=== PATIENT | female | born 2000 | race Caucasian/White ===

== ENCOUNTER 2024-07-20 23:34 | Inpatient (IN) | payer BC, MEDICAID ==
[2024-07-21] MEDS ORDERED: Bupivacaine 0.25% 10 ML SDV ONE
[2024-07-21] MEDS ORDERED: Lidocaine 1% 50 ML MDV INJECT PRN (00:32)
[2024-07-21 00:58] LABS: BASOPHILS PERCENT AUTO 0.4 % (0.0-1.0); EOSINOPHILS ABSOLUTE AUTO 0.1 K/mm3 (0.0-0.4); EOSINOPHILS PERCENT AUTO 0.7 % (0.0-6.0); HEMATOCRIT 37.5 % (37.0-47.0); IMMATURE GRAN ABSOLUTE AUTO 0.05 K/mm3 (0.00-0.05); IMMATURE GRAN PERCENT AUTO 0.5 % (0.0-0.4); LYMPHOCYTES ABSOLUTE AUTO 1.8 K/mm3 (1.0-4.8); LYMPHOCYTES PERCENT AUTO 17.2 % (24.0-44.0); MEAN CORPUSCULAR HEMOGLOBIN 32.7 pg (28.0-32.0); MEAN CORPUSCULAR HGB CONC 34.7 g/dl (32.0-36.0); MEAN CORPUSCULAR VOLUME 94.5 fl (83.0-99.0); MEAN PLATELET VOLUME 10.9 fl (9.4-12.3); MONOCYTES ABSOLUTE AUTO 0.8 K/mm3 (0.0-0.8); MONOCYTES PERCENT AUTO 7.9 % (0.0-8.0); NEUTROPHILS ABSOLUTE AUTO 7.5 K/mm3 (1.8-7.7); NEUTROPHILS PERCENT AUTO 73.3 % (41.0-71.0); PLATELET COUNT,PLT 204 K/mm3 (150-400); RED BLOOD CELL COUNT 3.97 M/mm3 (4.10-5.30); WHITE BLOOD CELL COUNT,WBC 10.23 K/mm3 (3.9-11.3)
[2024-07-21] MEDS: Acetaminophen 325 MG Tab PO ONE (01:31)
[2024-07-21] MEDS: Nalbuphine 10 MG/1 ML Vial IVPUSH ONE ×2 (02:20→05:39)
[2024-07-21] MEDS: Lactated Ringers 1,000 ML IV SCH (05:41)
[2024-07-21] MEDS ORDERED: ePHEDrine 50 MG/ML SDV IVPUSH PRN (08:15)
[2024-07-21] MEDS ORDERED: diphenhydrAMINE 50 MG/ML SDV IVPUSH PRN (08:15)
[2024-07-21] MEDS: fentaNYL 100 MCG/2 ML SDV EPIDUR PRN (08:38)
[2024-07-21] MEDS: Bupivacaine/fentaNYL/NS 100 ML Bag EPIDUR PRN (08:38)
[2024-07-21] MEDS ORDERED: Oxytocin/0.9 % Sodium Chloride 30 UNIT/500 ML BAG IV SCH (12:45)
[2024-07-21] MEDS: Oxytocin/0.9 % Sodium Chloride 30 UNIT/500 ML BAG IV SCH (12:56)
[2024-07-21] MEDS: Ibuprofen 600 MG Tab PO ONE (19:16)
[2024-07-21] MEDS ORDERED: Benzocaine/Menthol 20%-0.5% Spray 78 GM Cannister TOP PRN (19:50)
[2024-07-21] MEDS ORDERED: Magnesium Hydroxide 400 MG/5 ML Susp 30 ML Cup PO PRN (19:50)
[2024-07-21] MEDS ORDERED: Witch Hazel Medicated Pads 40/Jar TOP PRN (19:50)
[2024-07-21] MEDS ORDERED: Bisacodyl 10 MG Supp RECTAL PRN (19:50)
[2024-07-21 22:55] LABS: HEMATOCRIT 27.1 % (37.0-47.0); HEMOGLOBIN 9.5 gm/dl (12.0-16.0); MEAN CORPUSCULAR HEMOGLOBIN 33.5 pg (28.0-32.0); MEAN CORPUSCULAR HGB CONC 35.1 g/dl (32.0-36.0); MEAN CORPUSCULAR VOLUME 95.4 fl (83.0-99.0); MEAN PLATELET VOLUME 10.9 fl (9.4-12.3); PLATELET COUNT,PLT 151 K/mm3 (150-400); RED BLOOD CELL COUNT 2.84 M/mm3 (4.10-5.30); WHITE BLOOD CELL COUNT,WBC 20.84 K/mm3 (3.9-11.3)
[2024-07-21 23:12] LABS: INR 0.97; PROTHROMBIN TIME 10.3 SECONDS (9.7-12.0)
[2024-07-21 23:20] LABS: A/G RATIO 0.7 (1-2); ANION GAP 14.6 (5-15); BILIRUBIN TOTAL 0.5 mg/dL (0.2-1.0); BUN/CREATININE RATIO 8.8 (14-18); CALCIUM 8.4 mg/dL (8.5-10.1); CREATININE 0.8 mg/dL (0.55-1.02); EST CRCL DRUG DOSING (CG) 89.7 mL/min; POTASSIUM,K 3.6 mEq/L (3.5-5.1); PROTEIN TOTAL,TP 4.7 g/dl (6.4-8.2)
[2024-07-21 23:28] LABS: PTT,PARTIAL THROMBOPLSTIN TIME 27.8 SECONDS (21.7-31.4)
[2024-07-22] MEDS: Ibuprofen 800 MG Tab PO SCH (01:04)
[2024-07-22] MEDS: Prenatal Multivitamin with Calcium/Folic Acid/Iron Tab PO SCH (08:14)
[2024-07-22] MEDS: Acetaminophen 325 MG Tab PO PRN (08:59)
[2024-07-22] MEDS: Docusate Sodium 100 MG Cap PO PRN (11:52)
[2024-07-23 06:23] LABS: BASOPHILS PERCENT AUTO 0.3 % (0.0-1.0); EOSINOPHILS ABSOLUTE AUTO 0.2 K/mm3 (0.0-0.4); EOSINOPHILS PERCENT AUTO 2.2 % (0.0-6.0); HEMATOCRIT 21.8 % (37.0-47.0); IMMATURE GRAN ABSOLUTE AUTO 0.08 K/mm3 (0.00-0.05); IMMATURE GRAN PERCENT AUTO 0.8 % (0.0-0.4); LYMPHOCYTES ABSOLUTE AUTO 2.3 K/mm3 (1.0-4.8); LYMPHOCYTES PERCENT AUTO 21.8 % (24.0-44.0); MEAN CORPUSCULAR HEMOGLOBIN 33.2 pg (28.0-32.0); MEAN CORPUSCULAR HGB CONC 34.4 g/dl (32.0-36.0); MEAN CORPUSCULAR VOLUME 96.5 fl (83.0-99.0); MEAN PLATELET VOLUME 10.5 fl (9.4-12.3); MONOCYTES ABSOLUTE AUTO 0.6 K/mm3 (0.0-0.8); MONOCYTES PERCENT AUTO 5.8 % (0.0-8.0); NEUTROPHILS ABSOLUTE AUTO 7.3 K/mm3 (1.8-7.7); NEUTROPHILS PERCENT AUTO 69.1 % (41.0-71.0); PLATELET COUNT,PLT 142 K/mm3 (150-400); RED BLOOD CELL COUNT 2.26 M/mm3 (4.10-5.30); WHITE BLOOD CELL COUNT,WBC 10.62 K/mm3 (3.9-11.3)
[2024-07-23 06:29] LABS: HEMOGLOBIN 7.5 gm/dl (12.0-16.0)
[2024-07-23] MEDS: valACYclovir 500 MG Tab PO SCH (11:50)
== END 2024-07-23 16:15 | disposition home or self-care (01) | DRG 560 ==
LOC: JD.OBCHECK 23:34 → JD.OB 23:41 → JD.OBCHECK 07-21 00:32 → JD.OB 07-21 00:32 → OBSVTOIN 07-21 18:49 → JD.OB 07-21 18:50
PROVIDERS: ADMIT Obstetrics & Gynecology; ATTEND Obstetrics & Gynecology
PROC: 10E0XZZ Delivery of Products of Conception, External Approach (ICD-10-PCS; principal; 2024-07-21)
PROC: 10907ZC Drainage of Amniotic Fluid, Therapeutic from Products of Conception, Via Natural or Artificial Opening (ICD-10-PCS; 2024-07-21)
PROC: 0KQM0ZZ Repair Perineum Muscle, Open Approach (ICD-10-PCS; 2024-07-21)
PROC: 3E0R3BZ Introduction of Anesthetic Agent into Spinal Canal, Percutaneous Approach (ICD-10-PCS; 2024-07-21)
PROC: 00HU33Z Insertion of Infusion Device into Spinal Canal, Percutaneous Approach (ICD-10-PCS; 2024-07-21)
DX: O48.0 Post-term pregnancy (principal); Z37.0 Single live birth; D62 Acute posthemorrhagic anemia; O98.32 Other infections with a predominantly sexual mode of transmission complicating childbirth; A60.00 Herpesviral infection of urogenital system, unspecified; O77.0 Labor and delivery complicated by meconium in amniotic fluid; O90.81 Anemia of the puerperium; O70.1 Second degree perineal laceration during delivery; O76 Abnormality in fetal heart rate and rhythm complicating labor and delivery; Z3A.40 40 weeks gestation of pregnancy; Z28.39 Other underimmunization status
CPT/HCPCS: 36415; 51701; 51702; 59025; 59409; 80053; 85025; 85027; 85384; 85610; 85730; 86592; 93005; A9270-GY; C1758; J0665; J2300; J3010; J3490; J7120; J7999